=== PATIENT | male | born 1980 | race Caucasian/White ===

== ENCOUNTER → 2017-01-16 | Outpatient (CLI) | payer OTHER ==
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
== END | disposition home or self-care (01) ==
LOC: RADCTMAIN 14:58
PROVIDERS: ATTEND Physical Medicine & Rehabilitation
DX: S33.5XXD Sprain of ligaments of lumbar spine, subsequent encounter (principal); M53.3 Sacrococcygeal disorders, not elsewhere classified
CPT/HCPCS: 72192

== ENCOUNTER 2017-05-26 16:46 | Emergency (ER) | payer OTHER ==
[2017-05-26 16:54] VITALS: BP 133/96; PULSE 78; RESP 20; TEMP 98.6
[2017-05-26] MEDS ORDERED: DIPH,PERTUS(ACELL)TETVAC-LF 0.5 ML VIAL IM ONE (16:59)
--- NOTE | 2017-05-26 17:22 | ED ---
Wound/Laceration HPI - General Chief Complaint: Wound/Laceration Stated Complaint: Puncture Wound on Hand Time Seen by Provider: 05/26/17 16:55 Source: patient, RN notes reviewed Mode of arrival: ambulatory Limitations: no limitations - History of Present Illness Initial Comments: 36-year-old male presents emergency Department chief complaint laceration to his left hand. Patient states that he had a knife trying to open this up time and states that the knife slipped into his hand between his first and second digit. He states he believes he has full range of motion. Denies any paresthesias at this time. Bleeding is controlled pressure at this time. - Related Data Allergies Allergy/AdvReac Type Severity Reaction Status Date / Time codeine Allergy Unknown Verified 05/26/17 16:54 Childhood fluticasone Allergy Swelling Verified 05/26/17 16:54 [From Advair Diskus] Penicillins Allergy Unknown Verified 05/26/17 16:54 Childhood salmeterol Allergy Swelling Verified 05/26/17 16:54 [From Advair Diskus] Review of Systems ROS Statement: Those systems with pertinent positive or pertinent negative responses have been documented in the HPI. ROS Other: All systems not noted in ROS Statement are negative. Past Medical History Additional Past Medical History / Comment(s): back pain History of Any Multi-Drug Resistant Organisms: None Reported Past Surgical History: Orthopedic Surgery Additional Past Surgical History / Comment(s): rt foot Past Psychological History: No Psychological Hx Reported Smoking Status: Never smoker Past Alcohol Use History: Rare Past Drug Use History: None Reported General Exam Limitations: no limitations General appearance: alert, in no apparent distress Head exam: Present: atraumatic, normocephalic, normal inspection Respiratory exam: Present: normal lung sounds bilaterally. Absent: respiratory distress, wheezes, rales, rhonchi, stridor Cardiovascular Exam: Present: regular rate, normal rhythm, normal heart sounds. Absent: systolic murmur, diastolic murmur, rubs, gallop, clicks Extremities exam: Present: other (Left hand between the first and second digit there is a 3 summer laceration patient has full range of motion with good strength of all digits including the first and second digit Refill less than 2 seconds there is minimal bleeding at this time.) Neurological exam: Present: reflexes normal. Absent: motor sensory deficit Course Vital Signs 05/26/17 16:52 Temperature 98.6 F Pulse Rate 78 Respiratory 20 Rate Blood Pressure 133/96 O2 Sat by Pulse 98 Oximetry Procedures - Laceration Laceration #1 Consent Obtained: verbal consent Indication: laceration Site: hand (Left hand) Size (cm): 3 Description: linear Depth: simple, single layer Anesthetic Used: lidocaine 1%, without epi Anesthesia Technique: local infiltration Amount (mls): 6 Pre-repair: wound explored, irrigated extensively, deep structures intact Type of Sutures: nylon Size of Sutures: 4-0 Number of Sutures: 5 Technique: simple, interrupted Patient Tolerated Procedure: well, no complications Additional Comments: There is no obvious tendon injury patient has full range of motion Medical Decision Making - Medical Decision Making 36-year-old male present emergency Department chief complaint of left hand laceration. This was thoroughly cleaned, irrigated, sutures used to close the wound. Patient has full range of motion. Patient is concerned that he uses hand for work and does not want any complications. Patient provided orthopedic hand surgeon to follow up with and was advised to return for any worsening symptoms. Disposition Clinical Impression: Laceration of left hand Disposition: HOME SELF-CARE Condition: Stable Instructions: Care For Your Stitches (ED), Laceration (ED) Additional Instructions: Have sutures removed in 10 days.Please return to the Emergency Department if symptoms worsen or any other concerns. Referrals: Digna Augustin III, MD [Primary Care Provider] - 1-2 days Stanislav Real DO [Doctor of Osteopathic Medicine] - 1-2 days Time of Disposition: 17:22
== END 2017-05-26 17:29 | disposition home or self-care (01) ==
LOC: EC 16:46
DX: S61.412A Laceration without foreign body of left hand, initial encounter (principal); Z88.5 Allergy status to narcotic agent; Z88.8 Allergy status to other drugs, medicaments and biological substances; Z88.0 Allergy status to penicillin; Z23 Encounter for immunization; W26.0XXA Contact with knife, initial encounter; Y93.89 Activity, other specified
CPT/HCPCS: 12002; 90471; 90715; 99282

== ENCOUNTER 2020-05-19 12:26 | Emergency (ER) | payer OTHER ==
[2020-05-19 12:32] VITALS: RESP 18; TEMP 98.1
[2020-05-19 12:57] VITALS: PULSE 72
[2020-05-19 13:18] VITALS: BP 129/94
--- NOTE | 2020-05-19 13:19 | ED ---
General Adult HPI - General Chief complaint: Extremity Problem,Nontraumatic Stated complaint: Left arm pain, tingling in arm Time Seen by Provider: 05/19/20 12:36 Source: patient Mode of arrival: ambulatory Limitations: no limitations - History of Present Illness Initial comments: Dictation was produced using [employer] dictation software. please excuse any grammatical, word or spelling errors. This patient was cared for during a federal and state declared state of emergency secondary to Covid 19 Chief Complaint: 39-year-old male presents with left hand tingling. History of Present Illness: An is a 39-year-old male who presents with left hand tingling. He states he had in his thumb. He states that the tingling started his thumb and spread to his second third and had his fourth digit on his left hand. Shortly after he began having some pain that would radiate up into his elbow. 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 Denies any fever, chills or night sweats. He called his primary care physician office who recommended the patient come to the emergency department for concerns of possible stroke. Patient has no neurologic deficits. Patient has past medical history of back pain. The ROS documented in this emergency department record has been reviewed and confirmed by me. Those systems with pertinent positive or negative responses have been documented in the HPI. All other systems are other negative and/or noncontributory. PHYSICAL EXAM: General Impression: Alert and oriented x3, not in acute distress HEENT: Normocephalic atraumatic, extra-ocular movements intact, pupils equal and reactive to light bilaterally, mucous membranes moist. Cardiovascular: Heart regular rate and rhythm Chest: Able to complete full sentences, no retractions, no tachypnea Abdomen: abdomen soft, non-tender, non-distended, no organomegaly Musculoskeletal: Pulses present and equal in all extremities, no peripheral edema Motor: no focal deficits noted Left upper extremity: Skin is unremarkable. No deficit to light touch. Motor movements intact Neurological: CN II-XII grossly intact, no focal motor or sensory deficits noted Skin: Intact with no visualized rashes Psych: Normal affect and mood ED course: 39-year-old male with clinical presentation consistent with carpal tunnel syndrome. Signs upon arrival are within acceptable limits. Patient clinical presentation consistent with CVA. Patient given carpal tunnel instructions. Advised follow-up with primary care physician. - Related Data Allergies Allergy/AdvReac Type Severity Reaction Status Date / Time codeine Allergy Unknown Verified 05/19/20 12:32 Childhood fluticasone Allergy Swelling Verified 05/19/20 12:32 [From Advair Diskus] Penicillins Allergy Unknown Verified 05/19/20 12:32 Childhood salmeterol Allergy Swelling Verified 05/19/20 12:32 [From Advair Diskus] Review of Systems ROS Statement: Those systems with pertinent positive or pertinent negative responses have been documented in the HPI. ROS Other: All systems not noted in ROS Statement are negative. Past Medical History Additional Past Medical History / Comment(s): back pain History of Any Multi-Drug Resistant Organisms: None Reported Past Surgical History: Orthopedic Surgery Additional Past Surgical History / Comment(s): rt foot Past Psychological History: No Psychological Hx Reported Smoking Status: Never smoker Past Alcohol Use History: Rare Past Drug Use History: None Reported General Exam Limitations: no limitations Course Vital Signs 05/19/20 05/19/20 12:28 12:56 Temperature 98.1 F Pulse Rate 74 72 Respiratory 18 18 Rate Blood Pressure 156/101 134/101 O2 Sat by Pulse 99 99 Oximetry Disposition Clinical Impression: Carpal tunnel syndrome of left wrist Disposition: HOME SELF-CARE Condition: Good Instructions (If sedation given, give patient instructions): Carpal Tunnel Surgery (DC) Is patient prescribed a controlled substance at d/c from ED?: No Referrals: Digna Augustin III, MD [Primary Care Provider] - 1-2 days Time of Disposition: 13:19
== END 2020-05-19 13:35 | disposition home or self-care (01) ==
LOC: EC 12:26
DX: G56.02 Carpal tunnel syndrome, left upper limb (principal); Z88.5 Allergy status to narcotic agent; Z88.0 Allergy status to penicillin; Z88.8 Allergy status to other drugs, medicaments and biological substances
CPT/HCPCS: 99283

== ENCOUNTER → 2020-06-23 | Outpatient (CLI) | payer OTHER | LOC: LABWHC1 15:35 | PROVIDERS: ATTEND Family Medicine | DX: Z20.822 Contact with and (suspected) exposure to COVID-19 (principal) | CPT/HCPCS: U0003; C9803 ==

== ENCOUNTER → 2023-03-14 | Outpatient (CLI) | payer OTHER ==
[2023-03-14 19:19] LABS: Hepatitis A Antibody IgM Nonreactive; Hepatitis B Core IgM Nonreactive; Hepatitis B Surface Antigen Nonreactive; Hepatitis C IgG Antibody Nonreactive
== END | disposition home or self-care (01) ==
LOC: LABWHC1 13:49
PROVIDERS: ATTEND Family Medicine
DX: E11.65 Type 2 diabetes mellitus with hyperglycemia (principal); R74.8 Abnormal levels of other serum enzymes
CPT/HCPCS: 36415; 80074; 83036